=== PATIENT | female | born 1990 | race American Indian/Alaskan Native ===

== ENCOUNTER 2019-07-27 13:03 | Emergency (ER) | payer SELFPAY ==
[2019-07-27 15:03] VITALS: BP 119/87
--- NOTE | 2019-07-27 15:12 | Emergency Department Report ---
Chief Complaint: Medical Clearance Stated Complaint: NO PERIOD,FEELING SICK Time Seen by Provider: 07/27/19 15:04 - HPI History of Present Illness: 29 yo female presents to ED stating she missed her cycle and thinks she may be . She denies any urinary symptoms, fever, abd pain, vag bleed - ROS Review of Systems: as noted in HPI - Exam Vital Signs: Vital Signs 07/27/19 15:02 Temperature 98.4 F Pulse Rate 89 Respiratory 16 Rate Blood Pressure 119/87 O2 Sat by Pulse 100 Oximetry Physical Exam: GEN: aao x 3 no acute distress MSE screening note: Focused history and physical exam performed. Due to findings the following was ordered: ED Medical Decision Making - Medical Decision Making Pt presents with a non-medical emergency Examination is normal, Vital sign are stable Pt given information for clinics to follow up with pcp for further treatment and evaluation Also discussed strict return precautions in detail with pt who verbalized understanding ED Disposition for MSE Clinical Impression: Well adult health check Disposition: Z MED SCREENING EXAM-LEFT Is pt being admited?: No Does the pt Need Aspirin: No Condition: Stable Additional Instructions: follow up with obgyn Referrals: PRIMARY CARE [Primary Care Provider] - 3-5 Days [facility] [Provider Group] - 3-5 Days [facility] [Provider Group] - 3-5 Days Forms: Work/School Release Form(ED) Time of Disposition: 15:08
== END 2019-07-27 15:11 | disposition left against medical advice (07) ==
LOC: ED 13:03
DX: R69 Illness, unspecified (principal); Z53.21 Procedure and treatment not carried out due to patient leaving prior to being seen by health care provider

== ENCOUNTER 2019-09-11 04:59 | Emergency (ER) | payer OTHER ==
[2019-09-11 05:33] VITALS: BP 120/77
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
== END 2019-09-11 08:52 | disposition left against medical advice (07) ==
LOC: ED 04:59
DX: O9A.211 Injury, poisoning and certain other consequences of external causes complicating pregnancy, first trimester (principal); Z3A.11 11 weeks gestation of pregnancy; V49.59XA Passenger injured in collision with other motor vehicles in traffic accident, initial encounter; Y93.89 Activity, other specified; Y92.89 Other specified places as the place of occurrence of the external cause; Y99.8 Other external cause status
CPT/HCPCS: 99282

== ENCOUNTER 2020-03-18 15:10 | Inpatient (IN) | payer MEDICAID ==
[2020-03-18] MEDS ORDERED: LACTATED RINGERS 1,000 ML ONE (16:52)
[2020-03-18] MEDS ORDERED: BICITRA ORAL LIQD 30ML PO SCH (18:58)
[2020-03-18] MEDS ORDERED: FAMOTIDINE 20 MG/2 ML INJ IV SCH (18:58)
[2020-03-18] MEDS ORDERED: METOCLOPRAMIDE 10 MG/2 ML INJ IV SCH (18:58)
[2020-03-18] MEDS ORDERED: OXYTOCIN 20 UNIT/1000ML DRIP 20 UNITS/1,000 ML BAG IV SCH ×2 (19:00→23:00)
[2020-03-18] MEDS ORDERED: LACTATED RINGERS 1,000 ML IV SCH (19:00)
[2020-03-18] MEDS ORDERED: ceFAZolin/Water 2 GM/20 ML 2 GM/20 ML SYRINGE IV NR (19:00)
[2020-03-18 19:27] LABS: Basophils % (Auto) 0.3 % (0.0-1.8); Eosinophils % (Auto) 0.1 % (0.0-4.3); Hematocrit 26.9 % (30.3-42.9); Hemoglobin 9.6 gm/dl (10.1-14.3); Lymphocytes # (Auto) 1.2 K/mm3 (1.2-5.4); Lymphocytes % (Auto) 15.6 % (13.4-35.0); Mean Corpuscular HGB Conc 36 % (30-34); Mean Corpuscular Volume 78 fl (79-97); Monocytes # (Auto) 0.5 K/mm3 (0.0-0.8); Monocytes % (Auto) 7.3 % (0.0-7.3); Platelet Count 199 K/mm3 (140-440); Red Blood Count 3.46 M/mm3 (3.65-5.03); Red Cell Distribution Width 15.5 % (13.2-15.2)
[2020-03-18] MEDS ORDERED: BUPIVACAINE/PF (0.25%) 2.5 MG/ML 10 ML VIAL INFILTRATI ONE ×4 (19:48→20:58)
[2020-03-18] MEDS ORDERED: DEXMEDETOMIDINE 200 MCG/2 ML VIAL IV ONE (19:54)
--- NOTE | 2020-03-18 19:56 | History and Physical Report ---
History of Present Illness Date of examination: 03/18/20 Date of admission: 03/18/20 Chief complaint: Labor contractions for last 3 hrs. Hx of previous x 1 History of present illness: ANIYAH 03/27/2020. The course has been unremarkable. The pt declines PP tubal ligation. 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) Family/Genetic History: none Social history: single - Obstetrical History Expected Date of Delivery: 03/27/20 Actual Gestation: 38 Week(s) 5 Day(s) : 2 Para: 1 (Failed IOL for IUGR) Hx # Term Pregnancies: 1 Number of Pregnancies: 0 Spontaneous Abortions: 0 Medications and Allergies Allergies Allergy/AdvReac Type Severity Reaction Status Date / Time No Known Allergies Allergy Unverified 07/27/19 13:07 Active Meds: Active Medications Citric Acid/Sodium Citrate (Bicitra) 30 ml PO ONCE ANNITA Stop: 03/19/20 18:57 Famotidine (Pepcid) 20 mg IV ONCE ANNITA Stop: 03/19/20 18:57 Oxytocin/Sodium Chloride (Pitocin/Ns 20 Unit/1000ml Drip) 20 units in 1,000 mls @ 0 mls/hr IV TITR ANNITA Lactated Ringer's (Lactated Ringers) 1,000 mls @ 2,250 mls/hr IV PREOP ANNITA Stop: 03/19/20 19:27 Cefazolin Sodium (Ancef/Sterile Water 2 Gm/20 Ml) 2 gm in 20 mls @ 80 mls/hr IV PREOP NR; Protocol Stop: 03/19/20 18:59 Metoclopramide HCl (Reglan) 10 mg IV ONCE ANNITA Stop: 03/19/20 18:57 Review of Systems All systems: negative - Vital Signs Vital signs: Vital Signs Temp Pulse BP 99.2 F 103 H 122/83 03/18/20 16:23 03/18/20 16:23 03/18/20 16:23 Temp Pulse Resp BP Pulse Ox 99.2 F 103 H 122/83 03/18/20 16:23 03/18/20 16:25 03/18/20 16:25 - Physical Exam Breasts: Positive: deferred Abdomen: Positive: other (gravid, non-tender) - Obstetrical FHR: category 1 Uterine Contraction Monitor Mode: External Cervical Dilatation: 3 Cervical Effacement Percentage: 100 Uterine Contraction Pattern: Irregular Uterine Contraction Intensity: Moderate Results Result Diagrams: 03/18/20 19:08 Abnormal lab results 03/18/20 Range/Units 19:08 RBC 3.46 L (3.65-5.03) M/mm3 Hgb 9.6 L (10.1-14.3) gm/dl Hct 26.9 L (30.3-42.9) % MCV 78 L (79-97) fl MCHC 36 H (30-34) % RDW 15.5 H (13.2-15.2) % Seg Neutrophils % 76.7 H (40.0-70.0) % All other labs normal. Assessment and Plan Previous at 39 weeks EGA in early labor requesting repeat .
[2020-03-18] MEDS ORDERED: ONDANSETRON 4 MG/2 ML INJ IV PRN ×2 (20:03→22:38)
[2020-03-18] MEDS ORDERED: HYDROmorphone 1 MG/1 ML INJ IV PRN (20:03)
[2020-03-18] MEDS ORDERED: NALOXONE 0.4 MG/1 ML INJ IV PRN ×2 (20:03→22:38)
--- NOTE | 2020-03-18 20:03 | Anesthesia Consultation ---
Anesthesia Consult and Med Hx Date of service: 03/18/20 - Airway Anesthetic Teeth Evaluation: Good ROM Head & Neck: Adequate Mental/Hyoid Distance: Adequate Mallampati Class: Class II Intubation Access Assessment: Good - Pulmonary Exam CTA: Yes - Cardiac Exam Cardiac Exam: RRR - Pre-Operative Health Status ASA Pre-Surgery Classification: ASA2, Emergency Proposed Anesthetic Plan: Spinal - Pre-Anesthesia Comment Pre-Anesthesia Comments: csection no anesthesia problems - Pulmonary Hx Smoking: Yes (stop) Hx Asthma: No Hx Respiratory Symptoms: No SOB: No COPD: No Home Oxygen Therapy: No Hx Pneumonia: No Hx Sleep Apnea: No - Cardiovascular System Hx Hypertension: No Hx Coronary Artery Disease: No Hx Heart Attack/AMI: No Hx Angina: No Hx Percutaneous Transluminal Coronary Angioplasty (PTCA): No Hx Cardia Arrhythmia: No Hx Pacemaker: No Hx Internal Defibrillator: No Hx Valvular Heart Disease: No Hx Heart Murmur: No Hx Peripheral Vascular Disease: No - Central Nervous System Hx Neuromuscular Disorder: No Hx Seizures: No CVA: No Hx Back Pain: No Hx Psychiatric Problems: No - Gastrointestinal Hx Ulcer: No Hx Gastroesophageal Reflux Disease: No - Endocrine Hx Renal Disease: No Hx End Stage Renal Disease: No Hx Cirrhosis: No Hx Liver Disease: No Hx Insulin Dependent Diabetes: No Hx Non-Insulin Dependent Diabetes: No Hx Thyroid Disease: No Hx Hypothyroidism: No Hx Hyperthyroidism: No - Hematic Hx Anemia: No 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
--- NOTE | 2020-03-18 20:03 | Anesthesia Day of Surgery ---
Anesthesia Day of Surgery - Day of Surgery Patient Examined: Yes Patient H&P Reviewed: Yes Patient is NPO: Yes Beta Blockers: No Cardiac Clearance: No Pulmonary Clearance: No Bo's Test: N/A
[2020-03-18] MEDS ORDERED: PHENYLEPHRINE/NS 1,000 MCG/10 ML SYRINGE (OR USE) IV ONE (20:26)
[2020-03-18] MEDS ORDERED: ONDANSETRON 4 MG/2 ML INJ ONE (20:57)
[2020-03-18] MEDS ORDERED: KETOROLAC 30 MG/1 ML INJ ONE (20:57)
[2020-03-18] MEDS ORDERED: PHENYLEPHRINE 10 MG/1 ML INJ SDV ONE (21:27)
--- NOTE | 2020-03-18 22:37 | Post Operative Note ---
Pre-op diagnosis: 1) --39 weeks 2) Previous x 1 3) Early labor Post-op diagnosis: same Findings: Healthy male infant delivered from straight OP. Weight 3386 gm. APGARS 8/9 Procedure: Repeat Lower Segment Transverse Anesthesia: spinal Surgeon: NAT DASILVA Estimated blood loss: other (900 ml) Pathology: none Specimen disposition: discarded Condition: stable Disposition: PACU
[2020-03-18] MEDS ORDERED: MAGNESIUM HYDROXIDE (MOM) ORAL LIQD UDC PO PRN (22:38)
[2020-03-18] MEDS ORDERED: ACETAMINOPHEN 325 MG TAB PO PRN (22:38)
[2020-03-18] MEDS ORDERED: SIMETHICONE 80 MG CHEW TAB PO PRN (22:38)
[2020-03-18] MEDS ORDERED: HYDROCORTISONE 25 MG RECTAL SUPP PR PRN (22:38)
[2020-03-18] MEDS ORDERED: LANOLIN/ZINC/DIMETHICONE (LANSINOH) 7 GM TP PRN (22:38)
[2020-03-18] MEDS ORDERED: WITCH HAZEL/ GLYCERIN PAD TP PRN (22:38)
[2020-03-18] MEDS ORDERED: SENNOSIDES 8.6 MG TAB PO PRN (22:38)
[2020-03-19] MEDS: D5W/LACTATED RINGERS 1,000 ML IV SCH ×2 (00:36→08:43)
[2020-03-19] MEDS: MORPHINE 4 MG/1 ML INJ IV PRN ×2 (00:38→04:34)
[2020-03-19] MEDS: HYDROcodone/ACETAMINOPHEN 5-325 MG TAB PO PRN ×4 (01:49→22:43)
--- NOTE | 2020-03-19 05:41 | Post Anesthesia Evaluation ---
- Post Anesthesia Evaluation Patient Participated: Yes Airway Patent: Yes Stable Respiratory Function: Yes Temp > 96.8F: Yes Pain Manageable: Yes Adequeate Hydration: Yes Anesthesia Complications: No Block Receding Appropriately: Yes Patient on Ventilator: No
[2020-03-19] MEDS ORDERED: MEASLES, MUMPS & RUBELLA 12,500 UNIT/0.5 ML VACCINE SUB-Q ONE (06:00)
[2020-03-19] MEDS ORDERED: DIPHtheria,PERTUSSIS(ACELL),TETANUS VACCINE/PF 0.5 ML VIAL IM ONE (06:00)
[2020-03-19] MEDS: IBUPROFEN 800 MG TAB PO PRN ×2 (07:37→16:55)
[2020-03-19] MEDS: FERROUS SULFATE 325 MG TAB PO SCH (09:43)
[2020-03-19] MEDS: PRENATAL VIT27-FE FUMARATE-FOLIC ACID VIT TAB PO SCH (09:43)
--- NOTE | 2020-03-19 11:07 | Progress Note ---
Assessment and Plan - Patient Problems (1) Status post repeat low transverse section Current Visit: Yes Status: Acute Plan to address problem: Continue routine PP orders Keep dressing clean and dry, remove on POD#2 Anticipate d/c home in 24-48 hrs (2) Anemia Current Visit: Yes Status: Acute Qualifiers: Anemia type: iron deficiency Plan to address problem: Asymptomatic Continue daily oral iron supplementation as directed Increase iron rich food into diet Subjective - Subjective Date of service: 03/19/20 Principal diagnosis: S/P repeat C/S; anemia Interval history: See admission H & P; OB operative note and PP progress notes Patient reports: appetite normal, voiding normally, pain well controlled (with medications), flatus, ambulating normally, no bowel movement : doing well, nursing well Objective - Vital Signs Latest vital signs: Vital Signs Temp Pulse Resp BP BP Pulse Ox 03/19/20 08:30 97.5 F L 89 18 96/54 100 03/19/20 04:17 98.4 F 91 H 18 104/63 100 03/19/20 00:05 98.6 F 96 H 20 101/67 99 03/18/20 23:47 110 H 17 104/61 104/61 100 03/18/20 23:32 99 H 15 105/65 105/65 100 03/18/20 23:17 103 H 15 129/62 129/62 100 03/18/20 23:02 115 H 22 104/68 104/68 100 03/18/20 22:57 112 H 21 95/60 95/60 100 03/18/20 22:52 98.2 F 114 H 21 86/39 86/39 100 03/18/20 16:25 103 H 122/83 03/18/20 16:23 99.2 F 103 H 122/83 Intake and Output 03/18/20 03/19/20 03/19/20 23:59 07:59 15:59 Intake Total 5258 155 5180 Output Total 250 500 600 Balance 1150 -260 640 Intake: IV 1400 1000 D5lr 1,000 ml @ 125 mls/ 1000 hr IV DIRECT ANNITA Rx#: [id number] Oral 240 Intake, Free Water 240 Output: Urine 250 500 600 Indwelling Catheter 500 100 Void 500 Other: Total, Intake Amount 240 Total, Output Amount 500 500 # Voids Void 1 Weight 62.142 kg Estimated Blood Loss 900 - Exam Breasts: Present: normal Cardiovascular: Present: Regular rate Lungs: Present: Normal air movement Abdomen: Present: soft, tenderness Uterus: Present: firm, fundal height below umbilicus (U-2) Extremities: Present: normal Incision: Present: dressed (no shadow drainage or bleeding noted) - Labs Labs: Abnormal lab results 03/18/20 Range/Units 19:08 RBC 3.46 L (3.65-5.03) M/mm3 Hgb 9.6 L (10.1-14.3) gm/dl Hct 26.9 L (30.3-42.9) % MCV 78 L (79-97) fl MCHC 36 H (30-34) % RDW 15.5 H (13.2-15.2) % Seg Neutrophils % 76.7 H (40.0-70.0) %
[2020-03-19 14:25] LABS: Hematocrit 25.9 % (30.3-42.9); Hemoglobin 8.5 gm/dl (10.1-14.3)
[2020-03-20] MEDS: IBUPROFEN 800 MG TAB PO PRN ×3 (03:47→17:18)
[2020-03-20] MEDS: PRENATAL VIT27-FE FUMARATE-FOLIC ACID VIT TAB PO SCH (09:57)
[2020-03-20] MEDS: FERROUS SULFATE 325 MG TAB PO SCH (09:58)
[2020-03-20] MEDS: HYDROcodone/ACETAMINOPHEN 5-325 MG TAB PO PRN ×3 (10:15→21:53)
--- NOTE | 2020-03-20 10:37 | Discharge Summary ---
Providers - Providers Date of Admission: 03/18/20 19:00 Date of discharge: 03/20/20 (1600) Attending physician: NAT DASILVA MD Primary care physician: NAT DASILVA MD Hospitalization Reason for admission: active labor Delivery: Procedure: repeat low transverse Episiotomy: none Incision: dry, intact (no drainage or bleeding noted on steri-strips) Other procedures: none complications: none Discharge diagnosis: IUP at term delivered baby: male Hospital course: See admission H & P; OB operative summary and PP progress notes Condition at discharge: Stable Disposition: DC-01 TO HOME OR SELFCARE - Discharge Diagnoses (1) Status post repeat low transverse section Status: Acute (2) Anemia Status: Acute Qualifiers: Anemia type: iron deficiency Plan - Discharge Medications Prescriptions: Ferrous Sulfate [Feosol 325 MG tab] 325 mg PO QDAY 30 Days #30 tablet - Provider Discharge Summary Activity: routine, no sex for 6 weeks, no strenuous exercise, other Diet: other (Iron) Additional instructions: [] Smoking cessation referral if applicable(refer to patient education folder for contact #) [] Refer to [facility]'s [facility] Booklet Call your doctor immediately for: * Fever > 100.5 * Heavy vaginal bleeding ( >1 pad per hour) * Severe persistent headache * Shortness of breath * Reddened, hot, painful area to leg or breast * Drainage or odor from incision. * Keep incision clean and dry at all times and follow doctor's instructions regarding bathing/showering - Follow up plan Follow up: NAT DASILVA MD [Primary Care Provider] - 7 Days
--- NOTE | 2020-03-20 18:48 | Operative Report ---
Operative Report Operative Report: The patient was taken to the operating room where the epidural anesthetic was reinjected to obtain a satisfactory level for section. The patient was then placed in the supine position and prepped and draped in the usual fashion for section. The skin and subcutaneous tissue at the site of the proposed Pfannenstiel skin incision were injected using approximately 10 mL of 0.25% Marcaine. At this site a Pfannenstiel incision was made approximately 5 cm above the symphysis pubis. This incision was carried through the subcutaneous tissue and fascia. And no sutures were necessary Next the pelvis was irrigated using sterile normal saline. Examination of the pelvis then revealed the ovaries and fallopian tubes to be grossly normal there was a dense adhesion between the fundus of the uterus and the anterior abdominal wall. This adhesion adhesion was then divided using the electrocautery the fascia was from the underlying abdominal muscles using both sharp and blunt dissection. The rectus muscles were divided in the midline and the peritoneum was exposed. The peritoneum was incised transversely and the abdominal cavity was entered without difficulty. After a bladder retractor was inserted the lower uterine segment was exposed. The vesicouterine peritoneum was incised transversely and the bladder was from the lower uterine segment using blunt dissection. A 4 cm transverse incision was made in the lower uterine segment this incision was carried laterally and upward using blunt dissection amniotic membranes were then ruptured and thin meconium tinged fluid was noted. The head was then easily delivered into the uterine incision using the vacuum e xtractor which was applied for exactly 20 seconds. The meconium tinged fluid was then wiped from the baby's mouth and nose. The remainder of the delivery occurred without difficulty. After the umbilical cord was doubly clamped and cut the was handed to the nursery staff in excellent condition this was a male infant with scores of 8 at 1 minute and 9 at 5 minutes. After cord blood was obtained for routine laboratory studies the placenta was manually removed .The placenta and umbilical cord were both grossly normal. Examination of the uterine cavity then revealed no evidence of retained membranes or placenta. After the uterus had contracted in a satisfactory manner the uterine incision was closed in 2 layers both layers were running locking stitches of 0 Vicryl. A dense adhesion between the fundus of the uterus and the anterior abdominal wall was noted. This was divided using the electrocautery. No sutures were necessary. After absolute hemostasis was assured the peritoneum was reapproximated using a running stitch of 2-0 Vicryl. The rectus muscles were reapproximated in the midline using a running stitch of 2-0 chromic catgut. The fascia was reapproximated using 2 running stitches of 0 Vicryl which met in the midline. The subcutaneous tissue was thoroughly irrigated using sterile normal saline and was reapproximated using interrupted stitches of 3-0 Vicryl. The skin was reapproximated using a subcuticular stitch of 4-0 Monocryl. The estimated blood loss of the procedure calculated by the nursing staff was 900 mL urine output was 250 mL the infant weight was 3386 g.
[2020-03-21] MEDS: HYDROcodone/ACETAMINOPHEN 5-325 MG TAB PO PRN (02:59)
[2020-03-21] MEDS: PRENATAL VIT27-FE FUMARATE-FOLIC ACID VIT TAB PO SCH (08:13)
[2020-03-21] MEDS: IBUPROFEN 800 MG TAB PO PRN (08:14)
[2020-03-21] MEDS: FERROUS SULFATE 325 MG TAB PO SCH (08:14)
[2020-03-21 09:37] VITALS: BP 107/71
== END 2020-03-21 12:00 | disposition home or self-care (01) | DRG 766 ==
LOC: TRG 15:10 → APU 15:10 → TRG 18:59 → APU 19:00 → OB 03-19 00:10
PROVIDERS: ADMIT Obstetrics & Gynecology; ATTEND Obstetrics & Gynecology
PROC: 10D00Z1 Extraction of Products of Conception, Low, Open Approach (ICD-10-PCS; principal; 2020-03-18)
PROC: 3E0234Z Introduction of Serum, Toxoid and Vaccine into Muscle, Percutaneous Approach (ICD-10-PCS; 2020-03-19)
PROC: 3E0134Z Introduction of Serum, Toxoid and Vaccine into Subcutaneous Tissue, Percutaneous Approach (ICD-10-PCS; 2020-03-19)
DX: O34.211 Maternal care for low transverse scar from previous cesarean delivery (principal); Z3A.39 39 weeks gestation of pregnancy; Z37.0 Single live birth; Z23 Encounter for immunization; Z87.891 Personal history of nicotine dependence; O90.81 Anemia of the puerperium; D50.9 Iron deficiency anemia, unspecified
CPT/HCPCS: 36415; 59025; 85014; 85018; 85025; 86850; 86900; 86901; G0378; J0690; J1885; J2270; J2370; J2405; J2590; J2765; J3490; J7120; J7121

== ENCOUNTER 2020-08-15 17:29 | Emergency (ER) | payer MEDICAID, OTHER ==
[2020-08-15 17:48] VITALS: BP 128/92
--- NOTE | 2020-08-15 19:11 | Emergency Department Report ---
ED ENT HPI - General Chief complaint: Dental/Oral Stated complaint: TOOTHACHE Time Seen by Provider: 08/15/20 17:49 Source: patient Mode of arrival: Ambulatory Limitations: No Limitations - History of Present Illness Initial comments: This is a 30-year-old female nontoxic, well nourished in appearance, no acute signs of distress presents to the ED with c/o of right upper toothache 3 days. Patient denies following up with a dentist. Deneis any headache. Deneis any swelling.. Patient describes toothache as aching level of 8 out of 10. Patient denies any facial swelling. Patient denies any numbness, tingling, fever, chills, headache, stiff neck, abdominal pain, chest pain, shortness of breath. Patient denies any drug allergies or significant past medical history. MD complaint: tooth pain -: days(s) Location: tooth # 1 - pain here Severity: mild Severity scale (0 -10): 8 Quality: aching Consistency: constant Improves with: none Worsens with: none Context- Dental: history of dental caries, poor dental care Associated Symptoms: gum swelling, toothache. denies: fever, cough, pain with swallowing, sore throat, tinnitus, hearing loss, discharge from ear, rhinorrhea - Related Data Previous Rx's Medication Instructions Recorded Last Taken Type Ferrous Sulfate [Feosol 325 MG tab] 325 mg PO QDAY 30 Days #30 tablet 03/20/20 Unknown Rx Amoxicillin [Amoxicillin TAB] 875 mg PO BID #20 tablet 08/15/20 Unknown Rx Chlorhexidine Mouthwash [Peridex] 15 ml MM BID #1 bottle 08/15/20 Unknown Rx Allergies Allergy/AdvReac Type Severity Reaction Status Date / Time No Known Allergies Allergy Verified 08/15/20 17:46 ED Dental HPI - General Chief complaint: Dental/Oral Stated complaint: TOOTHACHE Time Seen by Provider: 08/15/20 17:49 Source: patient Mode of arrival: Ambulatory Limitations: No Limitations - Related Data Previous Rx's Medication Instructions Recorded Last Taken Type Ferrous Sulfate [Feosol 325 MG tab] 325 mg PO QDAY 30 Days #30 tablet 03/20/20 Unknown Rx Amoxicillin [Amoxicillin TAB] 875 mg PO BID #20 tablet 08/15/20 Unknown Rx Chlorhexidine Mouthwash [Peridex] 15 ml MM BID #1 bottle 08/15/20 Unknown Rx Allergies Allergy/AdvReac Type Severity Reaction Status Date / Time No Known Allergies Allergy Verified 08/15/20 17:46 ED Review of Systems ROS: Stated complaint: TOOTHACHE Other details as noted in HPI Constitutional: denies: chills, fever Eyes: denies: eye pain, eye discharge, vision change ENT: dental pain. denies: ear pain, throat pain Respiratory: denies: cough, shortness of breath, wheezing Cardiovascular: denies: chest pain, palpitations Endocrine: no symptoms reported Gastrointestinal: denies: abdominal pain, nausea, diarrhea Genitourinary: denies: urgency, dysuria, discharge Musculoskeletal: denies: back pain, joint swelling, arthralgia Skin: denies: rash, lesions Neurological: denies: headache, weakness, paresthesias Psychiatric: denies: anxiety, depression Hematological/Lymphatic: denies: easy bleeding, easy bruising ED Past Medical Hx - Past Medical History Hx Hypertension: No Hx Heart Attack/AMI: No Hx Congestive Heart Failure: No Hx Diabetes: No Hx Deep Vein Thrombosis: No Hx Liver Disease: No Hx Renal Disease: No 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) Hx Seizures: No Hx Asthma: No Hx COPD: No Hx HIV: No - Surgical History Hx Pacemaker: No Hx Internal Defibrillator: No - Social History Smoking Status: Never Smoker - Medications Home Medications: Home Medications Medication Instructions Recorded Confirmed Last Taken Type Ferrous Sulfate [Feosol 325 MG tab] 325 mg PO QDAY 30 Days #30 tablet 03/20/20 Unknown Rx Amoxicillin [Amoxicillin TAB] 875 mg PO BID #20 tablet 08/15/20 Unknown Rx Chlorhexidine Mouthwash [Peridex] 15 ml MM BID #1 bottle 08/15/20 Unknown Rx ED Physical Exam - General Limitations: No Limitations General appearance: alert, in no apparent distress - Head Head exam: Present: atraumatic, normocephalic - Eye Eye exam: Present: normal appearance - Expanded ENT Exam Expanded Ear exam: Present: normal external inspection Mouth exam: Present: normal external inspection, tongue normal. Absent: drooling, trismus, muffled voice Teeth exam: Present: dental caries, fractured tooth #, dental tenderness #, gingival enlargement, other (uvula midline. no swelling or abscess noted) Throat exam: Positive: normal inspection. Negative: tonsillar erythema, tonsillomegaly, tonsillar exudate, R peritonsillar mass, L peritonsillar mass - Neck Neck exam: Present: normal inspection, full ROM. Absent: tenderness, meningismus, lymphadenopathy - Respiratory Respiratory exam: Absent: respiratory distress - Cardiovascular Cardiovascular Exam: Present: regular rate - Extremities Exam Extremities exam: Present: full ROM - Back Exam Back exam: Present: full ROM - Neurological Exam Neurological exam: Present: alert, oriented X3, normal gait - Psychiatric Psychiatric exam: Present: normal affect, normal mood - Skin Skin exam: Present: warm, dry, intact, normal color. Absent: rash ED Course Vital Signs 08/15/20 17:47 Temperature 98.1 F Pulse Rate 79 Respiratory 16 Rate Blood Pressure 128/92 O2 Sat by Pulse 100 Oximetry - Reevaluation(s) Reevaluation #1: 08/15/20 19:09 Patient is speaking in full sentences with no signs of distress noted. ED Medical Decision Making - Medical Decision Making Patient be treated with amoxicillin. Vital signs are stable. Patient is stable and was examined by me. Patient was instructed to follow-up with a dentist doctor in 3-5 days or if symptoms worsen and continue return to emergency room as soon as possible. At time of discharge, the patient does not seem toxic or ill in appearance. No acute signs of distress noted. Patient agrees to discharge treatment plan of care. No further questions noted by the patient. Critical care attestation.: If time is entered above; I have spent that time in minutes in the direct care of this critically ill patient, excluding procedure time. ED Disposition Clinical Impression: Dental caries, Acute gingivitis Disposition: - TO HOME OR SELFCARE Is pt being admited?: No Does the pt Need Aspirin: No Condition: Stable Additional Instructions: follow-up with a dentist doctor in 3-5 days or if symptoms worsen and continue return to emergency room as soon as possible. Prescriptions: Amoxicillin [Amoxicillin TAB] 875 mg PO BID #20 tablet Chlorhexidine Mouthwash [Peridex] 15 ml MM BID #1 bottle Referrals: PRIMARY CARE, [Primary Care Provider] - 3-5 Days JASON ZARATE MD [Staff Physician] - 3-5 Days [facility] [Outside] - 3-5 Days Time of Disposition: 19:11
== END 2020-08-15 19:22 | disposition home or self-care (01) ==
LOC: ED 17:29
DX: K02.9 Dental caries, unspecified (principal); K05.00 Acute gingivitis, plaque induced; Z79.899 Other long term (current) drug therapy
CPT/HCPCS: 99281

== ENCOUNTER 2020-12-09 14:44 | Emergency (ER) | payer MEDICAID ==
[2020-12-09 15:09] VITALS: BP 114/80
--- NOTE | 2020-12-09 16:40 | Emergency Department Report ---
ED ENT HPI - General Chief complaint: Dental/Oral Stated complaint: SWOLLEN FACE/TOOTH ACHE Time Seen by Provider: 12/09/20 15:56 Source: patient Mode of arrival: Ambulatory Limitations: No Limitations - History of Present Illness Initial comments: This is a 30-year-old female nontoxic, well nourished in appearance, no acute signs of distress presents to the ED with c/o of right upper toothache times several weeks. Patient denies following up with a dentist. Patient stated has some right facial swelling that started today. Patient describes toothache as aching level of 8 out of 10. Patient denies any numbness, tingling, fever, chills, headache, stiff neck, abdominal pain, chest pain, shortness of breath. Patient denies any drug allergies or significant past medical history. MD complaint: tooth pain -: week(s) Location: tooth # 1 - pain here Severity: mild Severity scale (0 -10): 8 Quality: aching Consistency: constant Improves with: none Worsens with: none Context- Dental: history of dental caries, poor dental care Associated Symptoms: gum swelling, toothache. denies: fever, cough, pain with swallowing, sore throat, tinnitus, hearing loss, discharge from ear, rhinorrhea - Related Data Previous Rx's Medication Instructions Recorded Last Taken Type Ferrous Sulfate [Feosol 325 MG tab] 325 mg PO QDAY 30 Days #30 tablet 03/20/20 Unknown Rx Amoxicillin [Amoxicillin TAB] 875 mg PO BID #20 tablet 08/15/20 Unknown Rx Chlorhexidine Mouthwash [Peridex] 15 ml MM BID #1 bottle 08/15/20 Unknown Rx Chlorhexidine Mouthwash [Peridex] 15 ml MM BID #1 bottle 12/09/20 Unknown Rx Clindamycin [Clindamycin CAP] 300 mg PO Q8H #21 cap 12/09/20 Unknown Rx Naproxen 500 mg PO Q12H PRN #12 tablet 12/09/20 Unknown Rx Allergies Allergy/AdvReac Type Severity Reaction Status Date / Time No Known Allergies Allergy Verified 08/15/20 17:46 ED Dental HPI - General Chief complaint: Dental/Oral Stated complaint: SWOLLEN FACE/TOOTH ACHE Time Seen by Provider: 12/09/20 15:56 Source: patient Mode of arrival: Ambulatory Limitations: No Limitations - Related Data Previous Rx's Medication Instructions Recorded Last Taken Type Ferrous Sulfate [Feosol 325 MG tab] 325 mg PO QDAY 30 Days #30 tablet 03/20/20 Unknown Rx Amoxicillin [Amoxicillin TAB] 875 mg PO BID #20 tablet 08/15/20 Unknown Rx Chlorhexidine Mouthwash [Peridex] 15 ml MM BID #1 bottle 08/15/20 Unknown Rx Chlorhexidine Mouthwash [Peridex] 15 ml MM BID #1 bottle 12/09/20 Unknown Rx Clindamycin [Clindamycin CAP] 300 mg PO Q8H #21 cap 12/09/20 Unknown Rx Naproxen 500 mg PO Q12H PRN #12 tablet 12/09/20 Unknown Rx Allergies Allergy/AdvReac Type Severity Reaction Status Date / Time No Known Allergies Allergy Verified 08/15/20 17:46 ED Review of Systems ROS: Stated complaint: SWOLLEN FACE/TOOTH ACHE Other details as noted in HPI Comment: All other systems reviewed and negative Constitutional: denies: chills, fever Eyes: denies: eye pain, eye discharge, vision change ENT: dental pain. denies: ear pain, throat pain, hearing loss, epistaxis, congestion Respiratory: denies: cough, shortness of breath, wheezing Cardiovascular: denies: chest pain, palpitations Endocrine: no symptoms reported Gastrointestinal: denies: abdominal pain, nausea, diarrhea Genitourinary: denies: urgency, dysuria, discharge Musculoskeletal: denies: back pain, joint swelling, arthralgia Skin: denies: rash, lesions Neurological: denies: headache, weakness, paresthesias Psychiatric: denies: anxiety, depression Hematological/Lymphatic: denies: easy bleeding, easy bruising ED Past Medical Hx - Past Medical History Previous Medical History?: Yes Hx Hypertension: No Hx Heart Attack/AMI: No Hx Congestive Heart Failure: No Hx Diabetes: No Hx Deep Vein Thrombosis: No Hx Liver Disease: No Hx Renal Disease: No 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) Hx Seizures: No Hx Asthma: No Hx COPD: No Hx HIV: No - Surgical History Past Surgical History?: Yes Hx Pacemaker: No Hx Internal Defibrillator: No Additional Surgical History: x2 - Social History Smoking Status: Never Smoker Substance Use Type: Alcohol - Medications Home Medications: Home Medications Medication Instructions Recorded Confirmed Last Taken Type Ferrous Sulfate [Feosol 325 MG tab] 325 mg PO QDAY 30 Days #30 tablet 03/20/20 Unknown Rx Amoxicillin [Amoxicillin TAB] 875 mg PO BID #20 tablet 08/15/20 Unknown Rx Chlorhexidine Mouthwash [Peridex] 15 ml MM BID #1 bottle 08/15/20 Unknown Rx Chlorhexidine Mouthwash [Peridex] 15 ml MM BID #1 bottle 12/09/20 Unknown Rx Clindamycin [Clindamycin CAP] 300 mg PO Q8H #21 cap 12/09/20 Unknown Rx Naproxen 500 mg PO Q12H PRN #12 tablet 12/09/20 Unknown Rx ED Physical Exam - General Limitations: No Limitations General appearance: alert, in no apparent distress - Head Head exam: Present: atraumatic, normocephalic - Eye Eye exam: Present: normal appearance - Expanded ENT Exam Expanded Ear exam: Present: normal external inspection Mouth exam: Present: normal external inspection, tongue normal. Absent: drooling, trismus, muffled voice, tongue elevation, laceration Teeth exam: Present: dental caries, fractured tooth #, dental tenderness #, gingival enlargement, other (slight right upper facial swelling with no induration or fluctuance on exam.) Throat exam: Positive: normal inspection. Negative: tonsillar erythema, tonsillomegaly, tonsillar exudate, R peritonsillar mass, L peritonsillar mass - Neck Neck exam: Present: normal inspection, full ROM. Absent: tenderness, meningismus, lymphadenopathy - Respiratory Respiratory exam: Absent: respiratory distress - Cardiovascular Cardiovascular Exam: Present: regular rate - Extremities Exam Extremities exam: Present: full ROM - Back Exam Back exam: Present: full ROM - Neurological Exam Neurological exam: Present: alert, oriented X3, normal gait - Psychiatric Psychiatric exam: Present: normal affect, normal mood - Skin Skin exam: Present: warm, dry, intact, normal color. Absent: rash ED Course Vital Signs 12/09/20 15:06 Temperature 98.4 F Pulse Rate 73 Respiratory 16 Rate Blood Pressure 114/80 O2 Sat by Pulse 100 Oximetry - Reevaluation(s) Reevaluation #1: 12/09/20 16:40 Patient is speaking in full sentences with no signs of distress noted. ED Medical Decision Making - Medical Decision Making This is a 30-year-old female that presents with gingivitis and dental caries. Patient is stable and was examined by me. There is slight swelling to the right upper mandible with no induration or fluctuance on exam. Patient be discharged with clindamycin and Peridex. Patient had strict instructions to follow-up with oral maxillary surgeon in 24 hours or if symptoms would worsen to return to emergency room as was possible. At time of discharge, the patient does not seem toxic or ill in appearance. No acute signs of distress noted. Patient agrees to discharge treatment plan of care. No further questions noted by the patient. Critical care attestation.: If time is entered above; I have spent that time in minutes in the direct care of this critically ill patient, excluding procedure time. ED Disposition Clinical Impression: Dental abscess, Gingivitis Disposition: TO HOME OR SELFCARE Is pt being admited?: No Does the pt Need Aspirin: No Condition: Stable Instructions: Dental Abscess, [id number] Additional Instructions: Follow-up with oral maxillary surgeon in 24 hours or if symptoms would worsen to return to emergency room as was possible. 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 [address] [facility] [address], [place] [address] Hours: Thursday Closed Thursday 8AM-1PM, 2-5PM Thursday 8AM-1PM, 2-5PM Thursday 8AM-1PM, 2-5PM 8AM-1PM, 2-5PM Thursday 7AM-2PM Thursday Closed Prescriptions: Clindamycin [Clindamycin CAP] 300 mg PO Q8H #21 cap Naproxen 500 mg PO Q12H PRN #12 tablet PRN Reason: Pain , Severe (7-10) Chlorhexidine Mouthwash [Peridex] 15 ml MM BID #1 bottle Referrals: CALIN FRANCIS APRN-BC [Primary Care Provider] - 3-5 Days PRIMARY CARE, [Referring] - 3-5 Days [facility] [Outside] - 3-5 Days Forms: Work/School Release Form(ED) Time of Disposition: 16:44
== END 2020-12-09 17:21 | disposition home or self-care (01) ==
LOC: ED 14:44
DX: K04.7 Periapical abscess without sinus (principal); K05.10 Chronic gingivitis, plaque induced; Z98.890 Other specified postprocedural states; Z79.899 Other long term (current) drug therapy
CPT/HCPCS: 99282